=== PATIENT | male | born 1950 | race Caucasian/White ===

== ENCOUNTER 2019-10-05 15:14 | Emergency (ER) | payer MEDICARE, OTHER ==
[~2019-10-05] VITALS: Ht 180.3 cm; Wt 99.8 kg
--- OUTSIDE RECORDS SUMMARY | 2019-10-05 15:18 | XMS ---
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 E.Mitra VISIT COUNT (12 MO.) [address] [place] [address] [place] 2 [facility] 1 [facility] TOTAL 4 NOTE: Visits indicate total known visits. ED/UCC VISIT TRACKING (12 MO.) 10/05/2019 15:16 DANISH Ontiveros TYPE: Emergency COMPLAINT: - [facility] DIAGNOSES: - Dorsalgia, unspecified - back pain 10[facility]03[facility]2019 [facility] DIAGNOSES: - Other chronic pain - Lumbago with sciatica, right side - Knee Pain/Med Refill - Lumbago with sciatica, left side 02/15/2019 11:16 [facility] [place] [facility] TYPE: Emergency DIAGNOSES: 0. LOWER LEFT ABDOMINAL PAIN INPATIENT VISIT TRACKING (12 MO.) No inpatient visits to display in this time frame [email or web address]
[2019-10-05] MEDS ORDERED: NAPROXEN500 MG PO (15:40)
[2019-10-05] MEDS ORDERED: AMITRIPTYLINE H75 MG PO (15:40)
[2019-10-05] MEDS ORDERED: LOMOTIL TABLET1 EACH PO (17:30)
[2019-10-05] MEDS ORDERED: ONDANSETRON ODT8 MG PO (17:30)
[2019-10-05] MEDS ORDERED: CLONIDINE HCL0.1 MG PO (17:30)
== END 2019-10-05 17:39 | disposition home or self-care (01) ==
LOC: ED 15:14
DX: F11.23 Opioid dependence with withdrawal (principal); Z87.891 Personal history of nicotine dependence; Z79.899 Other long term (current) drug therapy
CPT/HCPCS: 99283